=== PATIENT | female | born 1985 | race African-American/Black ===

== ENCOUNTER 2017-03-22 09:51 | Emergency (ER) | payer OTHER ==
[~2017-03-22] VITALS: Ht 160 cm; Wt 73.0 kg
[2017-03-22] MEDS ORDERED: ACETAMINOPHEN 325MG TABLET PO ONE (12:30)
[2017-03-22] MEDS ORDERED: SODIUM CHLORIDE 0.9% 1,000 ML IV ONE ×2 (12:30→13:15)
[2017-03-22 13:03] LABS: EOSINOPHILS % 0.2 % (0.0-5.0); HEMATOCRIT. 21.8 % (36.0-48.0); LYMPHOCYTES % 7.8 % (20.0-50.0); MEAN CORPUSCULAR HEMOGLOBIN 20.3 pg (28.0-32.0); MEAN CORPUSCULAR VOLUME 66.2 fL (81.0-99.0); MEAN PLATELET VOLUME 6.6 fl (7.4-10.4); MONOCYTES % 4.2 % (2.0-8.0); NEUTROPHILS % 86.8 % (40.0-76.0); PLATELET 371 x1000/uL (130-400); RED BLOOD CELL COUNT 3.28 mill/uL (4.2-5.4); RED CELL DISTRIBUTION WIDTH 19.7 % (11.6-14.6)
[2017-03-22 13:06] LABS: HEMOGLOBIN. 6.7 g/dL (12.0-16.0)
[2017-03-22 13:08] LABS: CHLORIDE 105 mEq/L (98-107)
[2017-03-22 13:14] LABS: CARBON DIOXIDE 24 mEq/L (21-32)
[2017-03-22 13:30] LABS: B-HCG QUANTITATIVE 64616 mIU/mL (<3)
[2017-03-22 13:40] LABS: PLATELET ESTIMATE NORMAL
[2017-03-22] MEDS ORDERED: RHO(D) IMMUNE GLOBULIN 300 MCG/SYR IM ONE (15:45)
[2017-03-22 16:56] LABS: CLARITY URINE CLOUDY (CLEAR); COLOR URINE YELLOW (YELLOW); GLUCOSE URINE NEGATIVE (NEGATIVE); KETONES URINE 2+ (NEGATIVE); LEUKOCYTE ESTERASE URINE NEGATIVE (NEGATIVE); NITRITE URINE NEGATIVE (NEGATIVE); OCCULT BLOOD URINE 3+ (NEGATIVE); PROTEIN URINE 1+ (NEGATIVE); SPECIFIC GRAVITY URINE 1.023 (1.005-1.030)
[2017-03-22 16:57] VITALS: BP 100/60
[2017-03-22 17:08] LABS: *AMPHETAMINES SCREEN URINE NEGATIVE (NEGATIVE); *BARBITURATES SCREEN URINE NEGATIVE (NEGATIVE); *BENZODIAZEPINES SCREEN URINE NEGATIVE (NEGATIVE); *COCAINE SCREEN URINE NEGATIVE (NEGATIVE); CANNABINOID URINE SCREEN NEGATIVE (NEGATIVE); METHADONE URINE SCREEN NEGATIVE (NEGATIVE); OPIATES URINE SCREEN NEGATIVE (NEGATIVE); PHENCYCLIDINE URINE SCREEN NEGATIVE (NEGATIVE)
== END 2017-03-22 16:58 | disposition short-term general hospital (02) ==
LOC: ER 10:09
DX: O03.89 Complete or unspecified spontaneous abortion with other complications (principal); O03.6 Delayed or excessive hemorrhage following complete or unspecified spontaneous abortion; O99.011 Anemia complicating pregnancy, first trimester; D50.9 Iron deficiency anemia, unspecified; O26.51 Maternal hypotension syndrome, first trimester; Z3A.08 8 weeks gestation of pregnancy
CPT/HCPCS: 36415; 36430; 76856; 80048; 80305; 81001; 84702; 85025; 86850; 86870; 86900; 86901; 96360; 96361; 99285; J7030; J7042; J7050; Z7610; 86920; 90384